=== PATIENT | male | born 1960 | race Caucasian/White ===

== ENCOUNTER 2020-01-06 19:36 | Emergency (ER) | payer OTHER ==
[2020-01-06 19:51] VITALS: BP 136/94; PULSE 80; TEMP 98.2; BMI 28.2
[2020-01-06] MEDS ORDERED: DIPHTH,PERTUSS(ACELL),TET 0.5 ML DISP.SYRIN IM ONE ×2 (19:59→20:04)
[2020-01-06] MEDS ORDERED: PIPERACILLIN/TAZOB 3.375 GM 3.375 GM in DEXTROSE 5%-WATER - 50 ML IVPB ONE (20:02)
[2020-01-06] MEDS ORDERED: PIPERACILLIN/TAZOB 3.375 GM 3.375 GM/50 ML BAG IVPB ONE (20:04)
--- NOTE | 2020-01-06 20:36 | PDOC ---
Documentation entered by Christiane Singh SCRIBE, acting as scribe for Allie Delgado MD. Allie Delgado MD: This documentation has been prepared by the Samantha traylor Brenda, SCRIBE, under my direction and personally reviewed by me in its entirety. I confirm that the documentation accurately reflects all work, treatment, procedures, and medical decision making performed by me. History of Present Illness - General Chief Complaint: Burn Stated Complaint: BURN Time Seen by Provider: 01/06/20 19:38 History Source: Patient Exam Limitations: No Limitations - History of Present Illness Initial Comments: 01/06/20 19:49 The patient is a 59 year old male with no significant PMH who presents to the emergency department sent from urgent for a right forearm burn. Patient states that he was cooking yesterday, and when he went to get something out of the oven, he burned his right forearm area. Patient notes that it did look red at first but it did not bother him. He then endorses increasing redness and streaks growing proximally today, prompting him to go to urgent care. At urgent care, the patient was told he had to go to the ED to evaluate if IV antibiotics was needed or not. The patient denies chest pain, shortness of breath, headache and dizziness. Denies fever, chills, or any pain. PAST MEDICAL HISTORY: no significant history PAST SURGICAL HISTORY: Inguinal hernia repair FAMILY HISTORY: no pertinent history SOCIAL HISTORY: Pt lives with family and is employed. MEDICATIONS: reviewed ALLERGIES: As per nursing notes General: No fevers or chills, no weakness, no weight loss HEENT: No change in vision. No sore throat,. No ear pain CardioVascular: No chest pain or shortness of breath Respiratory:No cough, or wheezing. Gastrointestinal: no nausea, vomiting, diarrhea or constipation, No rectal bleeding Genitourinary: No dysuria, hematuria, or frequency Musculoskeletal: No joint or muscle pain or swelling Neurologic: No headache, vertigo, dizziness or loss of consciousness Psychiatric: nor depression Skin: (+) Redness and mild swelling on the right forarm milan to burn. No rashes or easy bruising Endocrine: no increased thirst or abnormal weight change Allergic: no skin or latex allergy All other systems reviewed and normal GENERAL: The patient is awake, alert, and fully oriented, in no acute distress. HEAD: Normal with no signs of trauma. EYES: Pupils equal, round and reactive to light, extraocular movements intact, sclera anicteric, conjunctiva clear. EXTREMITIES: Normal range of motion, no edema. NEUROLOGICAL: Normal speech, normal gait. PSYCH: Normal mood, normal affect. SKIN: (+) 2nd degree burn distal to the anticubital fossa with surrounding eythema, minimal swelling and a slight increase in warmth. (+) Ascending lymphagitis midway to the axilla, with no increase in warmth. Warm, Dry, normal turgor, no rashes or lesions noted. 01/06/20 20:00 Assessment and plan: This is a 59-year-old male with a small second-degree burn to his right forearm palmar side. Patient has associated ascending lymphangitis with minimal erythema and no swelling or increase in warmth or tenderness. Patient given IV Zosyn and discharged home on Augmentin as he is allergic to sulfa Past History - Medical History Allergies/Adverse Reactions: Allergies Allergy/AdvReac Type Severity Reaction Status Date / Time Sulfa (Sulfonamide Allergy Family hx Verified 01/06/20 19:41 Antibiotics) of allergy Home Medications: Ambulatory Orders Amoxicillin/Potassium Clav [Augmentin 875-125 Tablet] 1 each PO BID #14 tablet 01/06/20 Anemia: No Asthma: No Cancer: No Cardiac Disorders: No CVA: No COPD: No CHF: No Dementia: No Diabetes: No GI Disorders: No Disorders: No HTN: No Hypercholesterolemia: No Liver Disease: No Seizures: No Thyroid Disease: No - Surgical History Abdominal Surgery: Yes (Left Inguinal Hernia Repair 1999,RIGHT INGUINAL HERNIA 05/29) Appendectomy: No Cardiac Surgery: No Cholecystectomy: No Lung Surgery: No Neurologic Surgery: No Orthopedic Surgery: No - Psycho-Social/Smoking History Smoking History: Never smoked Have you smoked in the past 12 months: No Discharge - Discharge Information Problems reviewed: Yes Clinical Impression/Diagnosis: Cellulitis Qualifiers: Site of cellulitis: extremity Site of cellulitis of extremity: upper extremity Laterality: right Qualified Code(s): L03.113 - Cellulitis of right upper limb Condition: Good Disposition: HOME - Admission No - Additional Discharge Information Prescriptions: Amoxicillin/Potassium Clav [Augmentin 875-125 Tablet] 1 each PO BID #14 tablet - Follow up/Referral Referrals: Ambrose Dillard MD [Primary Care Provider] - - Patient Discharge Instructions Additional Instructions: Take Augmentin 1 tablet twice a day for 7 days to treat the infection. Tylenol or Motrin as needed for pain. Return to the emergency department immediately with ANY new, persistent or worsening symptoms. Continue any medications as previously prescribed by your physician. You should follow up with your primary doctor as soon as possible regarding today's emergency department visit. . Please make sure your doctor reviews the results of your emergency evaluation. Thank you for coming to the Emergency Department today for your care. It was a pleasure to see you today. Please note that your evaluation is INCOMPLETE until you follow-up with your doctor. - Post Discharge Activity
== END 2020-01-06 20:46 | disposition home or self-care (01) ==
LOC: SUPCPDRO 19:36 → FER 19:36
PROC: 3E03329 Introduction of Other Anti-infective into Peripheral Vein, Percutaneous Approach (ICD-10-PCS; principal; 2020-01-06)
PROC: 3E0234Z Introduction of Serum, Toxoid and Vaccine into Muscle, Percutaneous Approach (ICD-10-PCS; 2020-01-06)
DX: L03.113 Cellulitis of right upper limb (principal)
CPT/HCPCS: 90715; 99284-25

== ENCOUNTER 2022-08-17 06:18 | Day surgery (SDC) | payer OTHER ==
[2022-08-12 08:48] VITALS: BMI 28.2
[2022-08-17] MEDS ORDERED: MIDAZOLAM HCL 2 MG/2 ML SINGLE DOSE VIAL ONE (07:02)
[2022-08-17] MEDS ORDERED: SUCCINYLCHOLINE CHLORIDE 200 MG/10 ML SYRINGE ONE (07:02)
[2022-08-17] MEDS ORDERED: PROPOFOL 20 ML ONE ×2 (07:02→08:24)
[2022-08-17] MEDS ORDERED: ONDANSETRON 4 MG/2 ML VIAL ONE ×2 (07:02→09:55)
[2022-08-17] MEDS ORDERED: DEXAMETHASONE SOD PHOSPHATE 4 MG/1 ML VIAL ONE ×2 (07:02→09:55)
[2022-08-17] MEDS ORDERED: VANCOMYCIN 1,000 MG VIAL (RESTRICTED TO ID ONLY) ONE (07:10)
[2022-08-17] MEDS ORDERED: BUPIVACAINE HCL/EPINEPHRINE/PF 30 ML VIAL IJ ONE (07:10)
[2022-08-17] MEDS ORDERED: EPINEPHrine 1:1,000 1,000 MCG/ML ML ONE (07:10)
[2022-08-17] MEDS ORDERED: TRANEXAMIC ACID 1000 MG/10 ML VIAL ONE (07:51)
[2022-08-17] MEDS ORDERED: BUPIVACAINE HCL/PF 0.5% (5MG/ML) 10 ML VIAL ONE (08:08)
[2022-08-17] MEDS ORDERED: BUPIVACAINE LIPOSOME/PF (EXPAREL) 266 MG/20 ML VIAL ONE (08:08)
[2022-08-17] MEDS ORDERED: KETOROLAC TROMETHAMINE 30 MG/1 ML VIAL ONE (09:55)
[2022-08-17] MEDS ORDERED: ONDANSETRON 4 MG/2 ML VIAL IVPUSH PRN (10:26)
[2022-08-17] MEDS ORDERED: oxyCODONE HCL 5 MG TABLET PO PRN ×2 (10:26)
[2022-08-17] MEDS ORDERED: ACETAMINOPHEN 1000 MG/100 ML BAG IVPB ONE (10:26)
[2022-08-17] MEDS ORDERED: LACTATED RINGERS SOLUTION 1,000 ML IV SCH (10:30)
[2022-08-17] MEDS ORDERED: FENTANYL CITRATE/PF 50 MCG/ML VIAL ONE ×3 (11:29→12:12)
[2022-08-17] MEDS ORDERED: ACETAMINOPHEN INJECTION 100 ML IVPB ONE (11:53)
[2022-08-17] MEDS ORDERED: oxyCODONE HCL 5 MG TABLET ONE ×2 (12:10→12:18)
[2022-08-17 13:02] VITALS: BP 115/75; PULSE 87; RESP 20; TEMP 97.6
== END 2022-08-17 13:00 | disposition home or self-care (01) ==
LOC: FASU 06:18
PROVIDERS: ATTEND Orthopaedic Surgery
PROC: 0MRP47Z Replacement of Left Knee Bursa and Ligament with Autologous Tissue Substitute, Percutaneous Endoscopic Approach (ICD-10-PCS; principal; 2022-08-17 08:24)
DX: S83.512A Sprain of anterior cruciate ligament of left knee, initial encounter (principal); M23.52 Chronic instability of knee, left knee; X58.XXXA Exposure to other specified factors, initial encounter; Y93.9 Activity, unspecified; Y92.9 Unspecified place or not applicable
CPT/HCPCS: 94760; C1713